=== PATIENT | female | born 1955 | race Caucasian/White ===

== ENCOUNTER → 2016-06-23 | Outpatient (CLI) | payer BC ==
[~2016-06-23] MED LIST: ALBU8.5H2 IH; ALPR.25T PO; ALPR0.254 PO; ASPI-586 PO; AZIT500T2 PO; BUDE6HFA IH; DIPH25CA79 PO; DORZ10DR19 OU; DORZ1DRO6 OS; DUREZOL OU; ESCI10TA PO; GLAUCOMA GTTS; MONT10TA21 PO; MONT10TA24 PO; Montelukast Sodium PO; NYST1POW15 TOP; OMEP20TA7 PO; PRD20T PO; Prednisone PO; SUCR1TAB PO
--- NOTE | 2016-06-24 19:29 | Diagnostic Imaging Report ---
Bilateral screening mammogram. The current study was also evaluated with a Computer Aided Detection (CAD) system. INDICATION: Screening. No current complaints stated on the questionnaire. COMPARISON: 04/25/2015. FINDINGS: The breasts are composed of heterogeneously dense parenchyma which may decrease mammographic sensitivity. There are scattered benign-appearing calcifications. Allowing for technique and positional differences, no suspicious change is seen. IMPRESSION: No significant change. ACR BI-RADS Category 2: Benign findings. Result letter will be mailed to the patient. Note: At least 10% of breast cancer is not imaged by mammography. Dictated by: Dictated on workstation # [id number]
== END ==
LOC: RAD 11:11
PROVIDERS: ATTEND Nurse Practitioner Family
DX: Z12.31 Encounter for screening mammogram for malignant neoplasm of breast (principal)

== ENCOUNTER 2016-06-28 19:34 | Observation (INO) | payer BC ==
[2016-06-28] VITALS (9 sets, daily range): BP systolic 124–137; BP diastolic 59–108
[~2016-06-28] VITALS: Ht 160 cm; Wt 95.4 kg
[~2016-06-28 19:34] MED LIST changes: -ALPR0.254 PO; -ASPI-586 PO; -DIPH25CA79 PO; -DORZ1DRO6 OS; -ESCI10TA PO; -MONT10TA21 PO; -MONT10TA24 PO; -OMEP20TA7 PO; +RT-ALBUTEROL/IPRATROPIUM 3 ML (DUONEB) VIAL ONE; -SUCR1TAB PO
[2016-06-28] MEDS ORDERED: ASPIRIN 81 MG CHEW (CHILDREN'S ASA) PO ONE (19:45)
[2016-06-28] MEDS ORDERED: RT-ALBUTEROL/IPRATROPIUM 3 ML (DUONEB) VIAL INH ONE (19:45)
[2016-06-28] MEDS ORDERED: ONDANSETRON 4 MG/2 ML (SDV) Z0FRAN IVP ONE (19:45)
[2016-06-28] MEDS ORDERED: RX-NITROGLYCERIN 0.4 MG TAB BTL 25'S SL ONE (19:45)
[2016-06-28 19:47] LABS: BASOPHILS # (AUTO) 0.1 10^3/uL (0.0-0.1); BASOPHILS % (AUTO) 1 % (0-10); EOSINOPHILS # (AUTO) 0.2 10^3/uL (0.0-0.3); EOSINOPHILS % (AUTO) 2 % (0-10); LYMPHOCYTES # (AUTO) 3.2 X 10^3 (1.0-4.0); LYMPHOCYTES % (AUTO) 31 % (12-44); MEAN CORPUSCULAR HEMOGLOBIN 32 PG (25-34); MEAN CORPUSCULAR HGB CONC 34 G/DL (32-36); MEAN CORPUSCULAR VOLUME 94 FL (80-99); MEAN PLATELET VOLUME 9.9 FL (7.4-10.4); MONOCYTES # (AUTO) 0.7 X 10^3 (0.0-1.0); MONOCYTES % (AUTO) 7 % (0-12); NEUTROPHILS # (AUTO) 6.1 X 10^3 (1.8-7.8); NEUTROPHILS % (AUTO) 59 % (42-75); PLATELET COUNT 275 10^3/uL (130-400); RED BLOOD COUNT 4.82 10^6/uL (4.35-5.85); RED CELL DISTRIBUTION WIDTH 12.5 % (10.0-14.5); WHITE BLOOD COUNT 10.2 10^3/uL (4.3-11.0)
[2016-06-28 19:56] LABS: INR 0.9 (0.8-1.4); PROTHROMBIN TIME PATIENT 11.9 SEC (12.2-14.7)
--- NOTE | 2016-06-28 20:02 | Diagnostic Imaging Report ---
INDICATION: Shortness of breath COMPARISON: 07/16/2015 FINDINGS: Upright portable view of the chest is obtained. Heart size is upper limits of normal. There is no pulmonary vascular congestion. There is no pneumothorax or pleural fluid. Eventration of the right hemidiaphragm is unchanged. The lungs are clear. IMPRESSION: No radiographic evidence of an acute cardiopulmonary abnormality. No significant interval change from the prior study. Dictated by: Dictated on workstation # [id number]
[2016-06-28 20:06] LABS: ALANINE AMINOTRANSFERASE 45 U/L (0-55); ALBUMIN 4.9 G/DL (3.2-4.5); ANION GAP 13 MMOL/L (5-14); ASPARTATE AMINO TRANSFERASE 33 U/L (5-34); BILIRUBIN,TOTAL 0.2 MG/DL (0.1-1.0); BLOOD UREA NITROGEN 11 MG/DL (7-18); BUN/CREATININE RATIO 14; CARBON DIOXIDE 26 MMOL/L (21-32); CHLORIDE 104 MMOL/L (98-107); CREATININE SERUM 0.81 MG/DL (0.60-1.30); GFR ESTIMATED > 60; GLUCOSE 110 MG/DL (70-105); MAGNESIUM 2.8 MG/DL (1.8-2.4); POTASSIUM 3.8 MMOL/L (3.6-5.0); SODIUM 143 MMOL/L (135-145); TOTAL PROTEIN 8.2 G/DL (6.4-8.2)
[2016-06-28 20:14] LABS: MYOGLOBIN SERUM 35.9 NG/ML (10.0-92.0)
[2016-06-28] MEDS ORDERED: FAMOTIDINE 20MG/2ML IV (PEPCID) IV STA (20:41)
[2016-06-28] MEDS ORDERED: ANTACID SUSP 30 ML UDC (MYLANTA) PO ONE (20:45)
[2016-06-28] MEDS ORDERED: LORazepam INJ 2 MG/ML (ATIVAN) VIAL IVP ONE (20:45)
[2016-06-28] MEDS ORDERED: LIDOCAINE 2% VISCOUS 15 ML UDC PO ONE (20:45)
[2016-06-28] MEDS ORDERED: NS 100 ML (IVPB) BAG IV ONE (21:00)
[2016-06-28] MEDS ORDERED: IOHEXOL 350 MG/ML 150 ML (OMNIPAQUE 350) VIAL IV ONE (21:00)
--- NOTE | 2016-06-28 21:32 | Diagnostic Imaging Report ---
PROCEDURE: CT angiography of the chest with contrast. TECHNIQUE: Multiple contiguous axial images were obtained through the chest after uneventful bolus administration of intravenous contrast. Reconstructed CTA MIP acquisitions were also performed. INDICATION: Chest pain. Evaluate for PE. COMPARISON: None. FINDINGS: There is no evidence of pulmonary embolus or other acute vascular abnormality. There is no mediastinal or hilar adenopathy. The thyroid gland appears unremarkable. There is no pneumothorax or pleural fluid. The lungs are clear. There is a very subtle bronchiectasis in the medial lung bases, bilaterally. There is moderate diffuse hepatic steatosis. There is a cyst in the left hepatic lobe. Visualized upper abdomen is otherwise unremarkable. No osseous abnormality is seen. IMPRESSION: There is no evidence of pulmonary embolus or other acute abnormality in the chest. There is some minimal subtle bronchiectasis to the medial lung bases. Diffuse hepatic steatosis with a left lobe hepatic cyst. Dictated by: Dictated on workstation # [id number]
--- NOTE | 2016-06-28 21:44 | ED Chest Pain ---
General Chief Complaint: Chest Pain Stated Complaint: CHEST PAIN Nursing Triage Note: to ED with complaints of chest pain that is substernal/epigastric in nature that started 15-20minutes [employer] after patient had finished eating dinner. Patient reports shortness of breath as well. Nursing Sepsis Screen: No Definite Risk Source: patient, family Exam Limitations: no limitations History of Present Illness Time seen by provider: 19:35 Initial Comments This 60-year-old woman presents to the emergency room with complaints of chest tightness and difficulty breathing that started about 20 minutes prior to arrival. She reports the chest pain as a tightness rated as 8/10. She denies any cardiac history or prior cardiac workup. She vomited shortly after onset of chest pain. She reports her pain is worse with inspiration. She appears to be very anxious. Air movement is decreased. She reports a history of asthma. Pain started just after sitting down to eat a meal. Allergies and Home Medications Allergies Coded Allergies: Sulfa (Sulfonamide Antibiotics) (Verified Allergy, Unknown, 04/27/11) Home Medications Albuterol Sulfate 8.5 Gm Aer.w.adap #2 8.5 GM IH q2h PRN PRN DYSPNEA Prescribed by: ZACKARY MORRIS on 06/08/14 1420 Alprazolam 0.25 Mg Tab #30 0.25 MG PO Q6H PRN PRN anxiety Prescribed by: ZACKARY MORRIS on 06/08/14 1420 Diphenhydramine HCl 25 Mg Capsule 25 MG PO PRN DISCOMFORT (Reported) Montelukast Sodium 10 Mg Tablet 10 MG PO HS (Reported) Omeprazole 20 Mg Tablet.dr 20 MG PO DAILY (Reported) Timolol Maleate/Dorzolam Hcl 10 Ml Drops 1 DROP OU BID (Reported) Review of Systems Constitutional: no symptoms reported EENTM: No Symptoms Reported Respiratory: See HPI Cardiovascular: See HPI Gastrointestinal: See HPI Genitourinary: No Symptoms Reported Musculoskeletal: no symptoms reported Skin: no symptoms reported Psychiatric/Neurological: See HPI Endocrine: No Symptoms Reported Past Gskfdie-Ptwoso-Zbbtzi Hx Patient Social History Alcohol Use: Denies Use Recreational Drug Use: No Smoking Status: Never a Smoker 2nd Hand Smoke Exposure: No Recent Foreign Travel: No Contact w/Someone Who Travel: No Recent Infectious Disease Expo: No Recent Hopitalizations: No Physical Abuse Screen: No Sexual Abuse: No Immunizations Up To Date Tetanus Booster (TDap): More than 5yrs Date of Influenza Vaccine: Feb 20, 2014 Seasonal Allergies Seasonal Allergies: No Surgeries HX Surgeries: Yes (GLAUCOMA, cyst on ovary) Surgeries: Eye Surgery, Gallbladder, Hysterectomy Respiratory Hx Respiratory Disorders: Yes Respiratory Disorders: Asthma Cardiovascular Hx Cardiac Disorders: No Neurological Hx Neurological Disorders: No Reproductive System Hx Reproductive Disorders: No Sexually Transmitted Disease: No HIV/AIDS: No Female Reproductive Disorders: Denies Genitourinary Hx Genitourinary Disorders: No Gastrointestinal Hx Gastrointestinal Disorders: No Musculoskeletal Hx Musculoskeletal Disorders: Yes (hands) Musculoskeletal Disorders: Arthritis Endocrine Hx Endocrine Disorders: No HEENT HX ENT Disorders: No Loss of Vision: Denies Hearing Impairment: Denies Cancer Hx Cancer: No Psychosocial Hx Psychiatric Problems: Yes Behavioral Health Disorders: Anxiety Integumentary HX Skin/Integumentary Disorder: No Blood Transfusions Hx Blood Disorders: No Family Medical History Significant Family History: Heart Disease, Cancer Family Medial History: Arthritis G8 BROTHER G8 SISTER (arthritis) Diabetes mellitus G8 SISTER (pre diabetic) Gastroenteritis G8 BROTHER (diverticulitis) Neoplasm 19 FATHER (prostat ca) Not obtainable due to adoption 19 MOTHER (passed from natural causes) Parkinson's disease 19 FATHER Physical Exam Vital Signs Vital Sign - Last 12Hours 06/28/16 06/28/16 19:38 20:45 Temp 99.1 Pulse 80 Resp 26 B/P 171/105 Pulse Ox 98 O2 Delivery Room Air O2 Flow Rate 2 Capillary Refill : Less Than 3 Seconds General Appearance: WD/WN Anxious Moderate Distress HEENT: PERRL/EOMI Normal ENT Inspection Pharynx Normal Neck: Normal Inspection Respiratory: Chest Non Tender Lungs Clear Normal Breath Sounds No Accessory Muscle Use No Respiratory Distress Cardiovascular: Regular Rate, Rhythm No Edema No Murmur Normal Peripheral Pulses Gastrointestinal: Normal Bowel Sounds Non Tender Soft Extremity: Normal Inspection No Pedal Edema Neurologic/Psychiatric: Alert Oriented x3 No Motor/Sensory Deficits trouble locater II- XII Norm as Tested Other (very anxious and tearful) Skin: Normal Color Warm/Dry Progress/Results/Core Measures Results/Orders Lab Results Laboratory Tests Test 06/28/16 19:39 Range/Units Activated Partial Thromboplast Time 28 24-35 SEC Alanine Aminotransferase (ALT/SGPT) 45 0-55 U/L Albumin 4.9 H 3.2-4.5 G/DL Alkaline Phosphatase 127 40-136 U/L Anion Gap 13 5-14 MMOL/L Aspartate Amino Transf (AST/SGOT) 33 5-34 U/L BUN/Creatinine Ratio 14 Basophils # (Auto) 0.1 0.0-0.1 10^3/uL Basophils (%) (Auto) 1 0-10 % Blood Urea Nitrogen 11 7-18 MG/DL Calcium Level 10.0 8.5-10.1 MG/DL Carbon Dioxide Level 26 21-32 MMOL/L Chloride Level 104 98-107 MMOL/L Creatinine 0.81 0.60-1.30 MG/DL Eosinophils # (Auto) 0.2 0.0-0.3 10^3/uL Eosinophils (%) (Auto) 2 0-10 % Estimat Glomerular Filtration Rate > 60 Glucose Level 110 H 70-105 MG/DL Hematocrit 45 35-52 % Hemoglobin 15.3 11.5-16.0 G/DL INR Comment 0.9 0.8-1.4 Lipase 17 8-78 U/L Lymphocytes # (Auto) 3.2 1.0-4.0 X 10^3 Lymphocytes (%) (Auto) 31 12-44 % Magnesium Level 2.8 H 1.8-2.4 MG/DL Mean Corpuscular Hemoglobin 32 25-34 PG Mean Corpuscular Hemoglobin Concent 34 32-36 G/DL Mean Corpuscular Volume 94 80-99 FL Mean Platelet Volume 9.9 7.4-10.4 FL Monocytes # (Auto) 0.7 0.0-1.0 X 10^3 Monocytes (%) (Auto) 7 0-12 % Myoglobin 35.9 10.0-92.0 NG/ML Neutrophils # (Auto) 6.1 1.8-7.8 X 10^3 Neutrophils (%) (Auto) 59 42-75 % Platelet Count 275 130-400 10^3/uL Potassium Level 3.8 3.6-5.0 MMOL/L Prothrombin Time 11.9 L 12.2-14.7 SEC Red Blood Count 4.82 4.35-5.85 10^6/uL Red Cell Distribution Width 12.5 10.0-14.5 % Sodium Level 143 135-145 MMOL/L Total Bilirubin 0.2 0.1-1.0 MG/DL Total Protein 8.2 6.4-8.2 G/DL Troponin I < 0.30 <0.30 NG/ML White Blood Count 10.2 4.3-11.0 10^3/uL My Orders Orders-JOSE NICK MD Cbc With Automated Diff (06/28/16 19:36) Magnesium (06/28/16 19:36) Chest 1 View, Ap/Pa Only (06/28/16 19:36) Ekg Tracing (06/28/16 19:36) Cardiac Profile 1 (06/28/16 19:36) Comprehensive Metabolic Panel (06/28/16 19:36) Myoglobin Serum (06/28/16 19:36) Protime With Inr (06/28/16 19:36) Partial Thromboplastin Time (06/28/16 19:36) O2 (06/28/16 19:36) Monitor-Rhythm Ecg Trace Only (06/28/16 19:36) Lipid Panel (06/29/16 06:00) Aspirin Chewable Tablet (Baby Aspirin Ch (06/28/16 19:45) Saline Lock/Iv-Start (06/28/16 19:36) Lipase (06/28/16 19:36) Rx-Nitroglycerin Sl Tabs (Rx-Nitrostat S (06/28/16 19:45) Albuterol/Ipra Inhalation Soln (Duoneb I (06/28/16 19:45) Svn Sm Volume Nebulizer Rt-Rfs (06/28/16 19:36) Ondansetron Injection (Zofran Injectio (06/28/16 19:45) Albuterol/Ipra Inhalation Soln (Duoneb I (06/28/16 19:31) Lorazepam Injection (Ativan Injection) (06/28/16 20:45) Lidocaine 2% Viscous 15 Ml (Xylocaine Vi (06/28/16 20:45) Antacid Suspension (Mylanta Suspension (06/28/16 20:45) Famotidine Injection (Pepcid Injection) (06/28/16 20:41) Ct Angio Chest W (06/28/16 20:51) Iohexol Injection (Omnipaque 350 Mg/Ml 1 (06/28/16 21:00) Ns (Ivpb) (Sodium Chloride 0.9% Ivpb Bag (06/28/16 21:00) Medications Given in ED Current Medications Medications Dose Ordered Sig/Daisha Route Start Time Stop Time Status Last Admin Dose Admin Al Hydrox/Mg Hydrox/Simethicone 30 ml ONCE ONCE PO 06/28/16 20:45 06/28/16 20:46 DC 06/28/16 20:48 30 ML Albuterol/ Ipratropium 3 ml ONCE ONCE INH 06/28/16 19:45 06/28/16 19:46 DC 06/28/16 19:43 3 ML Aspirin 324 mg ONCE ONCE PO 06/28/16 19:45 06/28/16 19:46 DC 06/28/16 19:52 324 MG Iohexol 150 ml ONCE ONCE IV 06/28/16 21:00 06/28/16 21:08 DC 06/28/16 21:22 125 ML Lidocaine HCl 15 ml ONCE ONCE PO 06/28/16 20:45 06/28/16 20:46 DC 06/28/16 20:48 15 ML Lorazepam 0.5 mg ONCE ONCE IVP 06/28/16 20:45 06/28/16 20:46 DC 06/28/16 20:48 0.5 MG Nitroglycerin 0.4 mg UD ONCE SL 06/28/16 19:45 06/28/16 19:46 DC 06/28/16 19:52 0.4 MG Ondansetron HCl 8 mg ONCE ONCE IVP 06/28/16 19:45 06/28/16 19:46 DC 06/28/16 19:48 8 MG Sodium Chloride 100 ml ONCE ONCE IV 06/28/16 21:00 06/28/16 21:08 DC 06/28/16 21:22 80 ML Vital Signs/I&O Vital Sign - Last 12Hours 06/28/16 06/28/16 06/28/16 06/28/16 19:38 19:38 19:42 19:45 Temp 99.1 Pulse 80 Resp 26 B/P 171/105 Pulse Ox 98 95 98 O2 Delivery Room Air Room Air Room Air Room Air 06/28/16 06/28/16 06/28/16 06/28/16 19:52 20:30 20:45 21:30 Temp 99.1 Pulse 78 107 73 Resp 31 26 18 B/P 132/85 137/108 130/65 Pulse Ox 98 98 95 O2 Delivery Room Air Nasal Cannula Nasal Cannula O2 Flow Rate 2 2 06/28/16 22:01 Temp 98.8 Pulse 69 Resp 16 B/P 126/67 Pulse Ox 97 O2 Delivery Room Air Blood Pressure Mean: 127 Progress Note #1: Time: 20:40 Progress Note Patient received aspirin, nitroglycerin, and a DuoNeb treatment. She reported her pain improved to 3/10 but is now worsening again. She appears very anxious and appears to be hyperventilating. Ativan 0.5 mg IV was ordered. Patient reports pain is now also radiating into her middle back. CT angiogram was ordered to evaluate for PE and aortic pathology. Progress Note #2: Progress Note CT angiogram was negative. Symptoms improved significantly with administration of Ativan. ECG Initial ECG Impression Date: Jun 28, 2016 Initial ECG Impression Time: 19:37 Initial ECG Rate: 81 Initial ECG Rhythm: Normal Sinus Initial ECG Intervals: Normal Comment normal sinus rhythm with no ST elevation or depression. Normal normal intervals or axis deviation. PVCs noted. Diagnostic Imaging Diagonstic Imaging: Xray Plain Films/CT/US/NM/MRI: chest Comments chest x-ray viewed by me and report reviewed. See report below: NAME: ARIES FITCH MED REC#: [id number] PT STATUS: REG ER : 1955 PHYSICIAN: JOSE NICK MD ADMIT DATE: 06/28/16/ER Signed Date of Exam: 06/28/16 CHEST 1 VIEW, AP/PA ONLY INDICATION: Shortness of breath COMPARISON: 07/16/2015 FINDINGS: Upright portable view of the chest is obtained. Heart size is upper limits of normal. There is no pulmonary vascular congestion. There is no pneumothorax or pleural fluid. Eventration of the right hemidiaphragm is unchanged. The lungs are clear. IMPRESSION: No radiographic evidence of an acute cardiopulmonary abnormality. No significant interval change from the prior study. Dictated by: Dictated on workstation # [id number] Dict: 06/28/16 1947 Trans: 06/28/162002 SHASHI [id number] Interpreted by: CHANDRA FITZGERALD DO Electronically signed by:CHANDRA FITZGERALD DO 06/28/162004 Diagonstic Imaging: CT Plain Films/CT/US/NM/MRI: chest Comments CT angiogram of the chest viewed by me and report reviewed. See report below: NAME: ARIES FITCH [facility] REC#: [id number] PT STATUS: REG ER : 1955 PHYSICIAN: JOSE NICK MD ADMIT DATE: 06/28/16/ER Signed Date of Exam:06/28/16 CT ANGIO CHEST W PROCEDURE: CT angiography of the chest with contrast. TECHNIQUE: Multiple contiguous axial images were obtained through the chest after uneventful bolus administration of intravenous contrast. Reconstructed CTA MIP acquisitions were also performed. INDICATION: Chest pain. Evaluate for PE. COMPARISON: None. FINDINGS: There is no evidence of pulmonary embolus or other acute vascular abnormality. There is no mediastinal or hilar adenopathy. The thyroid gland appears unremarkable. There is no pneumothorax or pleural fluid. The lungs are clear. There is a very subtle bronchiectasis in the medial lung bases, bilaterally. There is moderate diffuse hepatic steatosis. There is a cyst in the left hepatic lobe. Visualized upper abdomen is otherwise unremarkable. No osseous abnormality is seen. IMPRESSION: There is no evidence of pulmonary embolus or other acute abnormality in the chest. There is some minimal subtle bronchiectasis to the medial lung bases. Diffuse hepatic steatosis with a left lobe hepatic cyst. Dictated by: Dictated on workstation # [id number] Dict: 06/28/162125 Trans: 06/28/162132 [facility] [id number] Interpreted by: CHANDRA FITZGERALD DO Electronically signed by: CHANDRA FITZGERALD DO 06/28/162134 Departure Communication Time/Spoke to Admitting Phy: 22:10 Communication Case was reviewed with Dr. Morris who agrees with admission for observation. She will consult pulmonology and/or cardiology as necessary in the morning. Because patient has never had a cardiac workup, she agrees that a cardiac rule out is appropriate. The chest pain protocol orders set is being followed. Patient will be allowed to continue her home medications including Xanax. Impression Impression: Primary Impression: Chest pain Qualified Code: R07.9 - Chest pain, unspecified Additional Impressions: Anxiety Dyspnea Qualified Code: R06.00 - Dyspnea, unspecified Nausea Nausea and vomiting Qualified Code: R11.2 - Nausea with vomiting, unspecified Asthma Qualified Code: J45.909 - Unspecified asthma, uncomplicated Disposition: ADMITTED INPATIENT Condition: Improved Time/Decision to Admit Time: 22:10 Departure-Patient Inst. Referrals: ZACKARY MORRIS MD (PCP/Family) Primary Care Physician JOSE NICK MD Jun 28, 2016 21:44
[2016-06-28] MEDS ORDERED: NS IV 500 ML 500 ML ONE (23:00)
[2016-06-28] MEDS ORDERED: NITROGLYCERIN SUBLINGUAL 0.4 MG TAB (NITROSTAT) SL PRN (23:30)
[2016-06-28] MEDS ORDERED: ONDANSETRON 4 MG/2 ML (SDV) Z0FRAN IV PRN (23:30)
[2016-06-28] MEDS ORDERED: MONT10TA21 PO (23:46)
[2016-06-28] MEDS ORDERED: OMEP20TA7 PO (23:47)
[2016-06-28] MEDS ORDERED: DIPH25CA79 PO (23:48)
[2016-06-29] VITALS (7 sets, daily range): BP systolic 120–144; BP diastolic 60–73
[2016-06-29 02:07] LABS: CREATINE KINASE 88 U/L (29-168)
[2016-06-29 02:12] LABS: TROPONIN I < 0.30 NG/ML (<0.30)
[2016-06-29 06:30] LABS: CHOLESTEROL 156 MG/DL (< 200); DIRECT LDL 101 MG/DL (1-129); TRIGLYCERIDES 161 MG/DL (<150); VLDL CHOLESTEROL 32 MG/DL (5-40)
[2016-06-29] MEDS ORDERED: FLU TRIvalent (5 YOA+) 2016-17 (AFLURIA) 0.5 ML IM ONE (07:15)
[2016-06-29] MEDS ORDERED: CATHETER FLUSH 10 ML SYR IV PRN (09:00)
[2016-06-29] MEDS ORDERED: ASPIRIN E.C. 325 MG (ECOTRIN) TABLET PO SCH (09:00)
--- NOTE | 2016-06-29 09:48 | Consultation-Cardiology ---
HPI-Cardiology Cardiology Consultation Date of Consultation 06/29/16 Date of Admission Indication: chest pain HPI 60-year-old lady with no significant past cardiac history or past medical history was in her usual state of health until yesterday evening when she had an episode of hot flashes surgery with diaphoresis, started feeling nauseous, had one episode of vomiting when she started having chest pain described as squeezing pressure in the retrosternal area radiating to the back, mild dyspnea , no palpitation, no syncope or near syncopal episode, came into the emergency room and given sublingual nitroglycerin with mild relief, no full relief was reported. Continue to have some pain for about an hour then the pain relieved. Denied any similar episodes in the past. Home Medications & Allergies Allergies: Coded Allergies: Sulfa (Sulfonamide Antibiotics) (Verified Allergy, Unknown, 04/27/11) Home Medication List Reviewed: Yes UQI-Yupbxg-Domyyl Hx Patient Social History Alcohol Use: Occasionally Uses Recreational Drug Use: No Smoking Status: Never a Smoker 2nd Hand Smoke Exposure: No Recent Foreign Travel: No Recent Infectious Disease Expo: No Recent Hopitalizations: No Physical Abuse Screen: No Sexual Abuse: No Immunizations Up To Date Tetanus Booster (TDap): More than 5yrs Date of Influenza Vaccine: Feb 20, 2014 Past Medical History past medical history as discussed below Family Medical History Significant Family History: Heart Disease, Cancer Family History: 19 FATHER Neoplasm (prostat ca) Parkinson's disease 19 MOTHER Not obtainable due to adoption (passed from natural causes) G8 BROTHER Arthritis G8 BROTHER Gastroenteritis (diverticulitis) G8 SISTER Arthritis (arthritis) Diabetes mellitus (pre diabetic) Constitutional: see HPINo chills, diaphoresisNo dizziness, No fever, No malaise, weaknessNo weight gain, No weight loss, No other EENTM: no symptoms reported see HPI Respiratory: see HPINo cough, No dyspnea on exertion, No hemoptysis, No orthopnea, No phlegm, short of breathNo stridor, No wheezing, No other Cardiovascular: see HPI chest painNo edema, No Hx of Intervention, No palpitations, No syncope, No vascular heart diseas, No other Gastrointestinal: see HPI abdominal pain nausea vomiting Genitourinary: no symptoms reported see HPI Musculoskeletal: no symptoms reported see HPI Skin: no symptoms reported see HPI Psychiatric/Neurological: No Symptoms Reported See HPI Reviewed Test Results Reviewed Test Results Lab Laboratory Tests Test 06/28/16 19:39 06/29/16 01:27 06/29/16 05:46 Range/Units Activated Partial Thromboplast Time 28 24-35 SEC Alanine Aminotransferase (ALT/SGPT) 45 0-55 U/L Albumin 4.9 H 3.2-4.5 G/DL Alkaline Phosphatase 127 40-136 U/L Anion Gap 13 5-14 MMOL/L Aspartate Amino Transf (AST/SGOT) 33 5-34 U/L BUN/Creatinine Ratio 14 Basophils # (Auto) 0.1 0.0-0.1 10^3/uL Basophils (%) (Auto) 1 0-10 % Blood Urea Nitrogen 11 7-18 MG/DL Calcium Level 10.0 8.5-10.1 MG/DL Carbon Dioxide Level 26 21-32 MMOL/L Chloride Level 104 98-107 MMOL/L Creatinine 0.81 0.60-1.30 MG/DL Eosinophils # (Auto) 0.2 0.0-0.3 10^3/uL Eosinophils (%) (Auto) 2 0-10 % Estimat Glomerular Filtration Rate > 60 Glucose Level 110 H 70-105 MG/DL Hematocrit 45 35-52 % Hemoglobin 15.3 11.5-16.0 G/DL INR Comment 0.9 0.8-1.4 Lipase 17 8-78 U/L Lymphocytes # (Auto) 3.2 1.0-4.0 X 10^3 Lymphocytes (%) (Auto) 31 12-44 % Magnesium Level 2.8 H 1.8-2.4 MG/DL Mean Corpuscular Hemoglobin 32 25-34 PG Mean Corpuscular Hemoglobin Concent 34 32-36 G/DL Mean Corpuscular Volume 94 80-99 FL Mean Platelet Volume 9.9 7.4-10.4 FL Monocytes # (Auto) 0.7 0.0-1.0 X 10^3 Monocytes (%) (Auto) 7 0-12 % Myoglobin 35.9 10.0-92.0 NG/ML Neutrophils # (Auto) 6.1 1.8-7.8 X 10^3 Neutrophils (%) (Auto) 59 42-75 % Platelet Count 275 130-400 10^3/uL Potassium Level 3.8 3.6-5.0 MMOL/L Prothrombin Time 11.9 L 12.2-14.7 SEC Red Blood Count 4.82 4.35-5.85 10^6/uL Red Cell Distribution Width 12.5 10.0-14.5 % Sodium Level 143 135-145 MMOL/L Total Bilirubin 0.2 0.1-1.0 MG/DL Total Protein 8.2 6.4-8.2 G/DL Troponin I < 0.30 < 0.30 <0.30 NG/ML White Blood Count 10.2 4.3-11.0 10^3/uL Total Creatine Kinase 88 29-168 U/L Cholesterol Level 156 < 200 MG/DL HDL Cholesterol 32 L 40-60 MG/DL LDL Cholesterol Direct 101 1-129 MG/DL Triglycerides Level 161 H <150 MG/DL VLDL Cholesterol 32 5-40 MG/DL Physical Exam Vital Signs Vital Sign - Last 12Hours 06/28/16 06/28/16 19:38 20:45 Temp 99.1 Pulse 80 Resp 26 B/P 171/105 Pulse Ox 98 O2 Delivery Room Air O2 Flow Rate 2 Capillary Refill : Less Than 3 Seconds General Appearance: No Apparent Distress WD/WN Eyes: Bilateral Eye EOMI, Bilateral Eye Normal Inspection, Bilateral Eye PERRL HEENT: PERRL/EOMI TMs Normal Normal ENT Inspection Pharynx Normal Neck: Full Range of Motion Normal Inspection Non Tender Supple Carotid Bruit Respiratory: Chest Non Tender Lungs Clear Normal Breath Sounds No Accessory Muscle Use No Respiratory Distress Cardiovascular: Regular Rate, Rhythm No Edema No Gallop No JVD No Murmur Normal Peripheral Pulses Gastrointestinal: Normal Bowel Sounds No Organomegaly No Pulsatile Mass Non Tender Soft Back: Normal Inspection No CVA Tenderness No Vertebral Tenderness Extremity: Normal Capillary Refill Normal Inspection Normal Range of Motion Non Tender No Calf Tenderness No Pedal Edema Neurologic/Psychiatric: Alert Oriented x3 No Motor/Sensory Deficits Normal Mood/Affect Skin: Normal Color Warm/Dry Lymphatic: No Adenopathy A/P-Cardiology Admission Diagnosis Chest pain nonspecific etiology Shortness of breath Gastroesophageal reflux disease Assessment/Plan Chest pain nonspecific etiology, atypical in presentation, had episode last night, patient is chest pain-free, EKG and cardiac enzymes were negative. Discussed with her the management plan, recommended exercise stress testing, monitor telemetry, evaluate echocardiogram. Mild shortness of breath during chest pain, reporting improvement. Continue to monitor History of gastroesophageal reflux disease using [id number] medication, recommended endoscopy History of cholecystectomy, hysterectomy with bilateral oophorectomy. Obesity, BMI is 37, educated on diet and weight loss Clinical Quality Measures AMI/AHF: ASA po Prior to arrival: No DVT/VTE Risk/Contraindication: Risk Factor Score Per Nursin RFS Level Per Nursing on Admit: 3=High JUSTIN BARRAZA MD Jun 29, 2016 09:48
[2016-06-29] MEDS ORDERED: MONT10TA24 PO (09:55)
[2016-06-29] MEDS ORDERED: DORZ1DRO6 OS (09:55)
[2016-06-29] MEDS ORDERED: SUCRALFATE 1 GM (CARAFATE) TAB PO SCH (11:00)
--- NOTE | 2016-06-29 11:01 | Short Stay Summary ---
History of Present Illness History of Present Illness Reason for visit/HPI PT IS A 60 Y/O FEMALE WHO IS KNOWN TO ME FROM CLINIC. SHE PRESENTED TO THE EMERGENCY DEPARTMENT LAST NIGHT AFTER HAVING AN EPISODE OF PERSISTENT CHEST PAIN YESTERDAY EVENING. THE PATIENT AND HER FAMILY REPORT THE HISTORY OF ARIES SITTING DOWN TO DINNER YESTERDAY - STARTED EATING HAM AND BEANS AND CORNBREAD, SHORTLY INTO THE MEAL, SHE STARTED TO HAVE MILD DISCOMFORT IN HER CHEST, AND HAD A HOT FLASH AND SWEATING. SHE GOT UP FROM THE TABLE, WENT OUTSIDE AND WALKED AROUND IN THE COOL AIR, THEN STARTED TO HAVE EMESIS. SHE STATES THAT SHE VOMITED SEVERAL TIMES, THEN WENT INSIDE FOR A DRINK, AND HER FAMILY ENCOURAGED HER TO BE EVALUATED IN THE EMERGENCY DEPT. SHE WAS GIVEN NITRO, ASPIRIN, NO CHEST DISCOMFORT RELIEF. SHE THEN HAD A GI COCKTAIL WITH NO IMPROVEMENT IN HER SYMPTOMS. HER FAMILY THINKS THAT SHE HAD A FEW MILD PANIC ATTACKS DUE TO HER PERSISTENT SYMPTOMS. TODAY SHE STATES THAT SHE CONTINUES TO HAVE SOME DISCOMFORT IN HER EPIGASTRIC REGION. Date of Admission Jun 28, 2016 at 22:31 Date of Discharge 06/29/16 Attending Physician Zackary Morris MD Admitting Physician Zackary Morris MD Consult JUSTIN BARRAZA MD, TAKA MD Allergies and Home Medications Allergies Coded Allergies: Sulfa (Sulfonamide Antibiotics) (Verified Allergy, Unknown, 04/27/11) Home Medications Alprazolam 0.25 Mg Tablet #45 0.25 MG PO BID PRN Prescribed by: ZACKARY MORRIS on 06/29/16 111 Aspirin 81 Mg Tablet. #90 81 MG PO DAILY Prescribed by: ZACKARY MORRIS on 06/29/16 1112 Diphenhydramine HCl 25 Mg Capsule 25 MG PO DAILY PRN PRN ALLERGIES (Reported) Dorzolamide/Timolol/Pf 1 Each Droperette 1 DROP OS BID (Reported) Escitalopram Oxalate 10 Mg Tablet #30 10 MG PO HS Prescribed by: ZACKARY MORRIS on 06/29/16 111 Montelukast Sodium 10 Mg Tablet 10 MG PO HS (Reported) Omeprazole 20 Mg Tablet. #60 20 MG PO BID Prescribed by: ZACKARY MORRIS on 06/29/16 111 Sucralfate 1 Gm Tablet #120 1 GM PO ACHS Prescribed by: ZACKARY MORRIS on 06/29/16 1112 Past Sjiqemc-Odnutk-Zrezmf Hx Patient Social History Living Status: LIVES AT HOME, FAMILY INVOLVED Alcohol Use: Occasionally Uses Recreational Drug Use: No Smoking Status: Never a Smoker 2nd Hand Smoke Exposure: No Physical Abuse Screen: No Sexual Abuse: No Recent Foreign Travel: No Contact w/other who traveled: No Recent Hopitalizations: No Recent Infectious Disease Expo: No Immunizations Up To Date Tetanus Booster (TDap): More than 5yrs Date of Influenza Vaccine: Feb 20, 2014 Seasonal Allergies Seasonal Allergies: No Surgeries HX Surgeries: Yes (GLAUCOMA, cyst on ovary) Surgeries: Eye Surgery, Gallbladder, Hysterectomy Respiratory Hx Respiratory Disorders: Yes Respiratory Disorders: Asthma Cardiovascular Hx Cardiovascular Disorders: No Neurological Hx Neurological Disorders: No Reproductive System Hx Reproductive Disorders: No Sexually Transmitted Disease: No HIV/AIDS: No Female Reproductive Disorders: Denies Genitourinary Hx Genitourinary Disorders: No Gastrointestinal Hx Gastrointestinal Disorders: No Gastrointestinal Disorders: Gastroesophageal Reflux, Chronic Constipation, Chronic Diarrhea, Irritable Bowel Musculoskeletal Hx Musculoskeletal Disorders: Yes (hands) Musculoskeletal Disorders: Arthritis Endocrine Hx Endocrine Disorders: No HEENT HX ENT Disorders: No HEENT Disorders: Glaucoma Loss of Vision: Denies Hearing Impairment: Denies Cancer Hx Cancer: No Psychosocial Hx Psychiatric Problems: Yes Behavioral Health Disorders: Anxiety Integumentary HX Skin/Integumentary Disorder: No Blood Transfusions Hx Blood Disorders: No Adverse Reaction to a Blood Tr: No (NEVER RECEIVED BLOOD ) Reviewed Nursing Assessment Reviewed/Agree w Nursing PMH: Yes Family Medical History Significant Family History: Heart Disease, Cancer, Diabetes, GI Disease, Other Conditions/Hx (PARKINSONS DISEASE) Family Hx: Arthritis G8 BROTHER G8 SISTER (arthritis) Diabetes mellitus G8 SISTER (pre diabetic) Gastroenteritis G8 BROTHER (diverticulitis) Neoplasm 19 FATHER (prostat ca) Not obtainable due to adoption 19 MOTHER (passed from natural causes) Parkinson's disease 19 FATHER Constitutional: No chills, No dizziness, No fever, No malaise, No weakness EENTM: No hoarseness, No mouth pain, No throat pain Respiratory: No cough, No dyspnea on exertion, No short of breath, No wheezing Cardiovascular: chest painNo palpitations, No syncope Gastrointestinal: LUQ (EPIGASTRIC DISCOMFORT) abdominal painNo constipation, No diarrhea, No melena, vomiting Genitourinary: no symptoms reported Musculoskeletal: No back pain, No joint swelling, No muscle weakness Skin: no symptoms reported Psychiatric/Neurological: Anxiety All Other Systems Reviewed Negative Unless Noted: Yes Physical Exam Vital Signs Vital Sign - Last 12Hours 06/28/16 06/28/16 19:38 20:45 Temp 99.1 Pulse 80 Resp 26 B/P 171/105 Pulse Ox 98 O2 Delivery Room Air O2 Flow Rate 2 Capillary Refill : Less Than 3 Seconds General Appearance: No Apparent Distress WD/WN HEENT: PERRL/EOMI Pharynx Normal Neck: Full Range of Motion Supple Respiratory: Chest Non Tender Lungs Clear Normal Breath Sounds No Accessory Muscle Use No Respiratory Distress Cardiovascular: Regular Rate, Rhythm No Edema No Murmur Normal Peripheral Pulses Gastrointestinal: Normal Bowel Sounds Soft Tenderness (OVER EPIGASTRIUM) Rectal: Deferred Back: Normal Inspection No CVA Tenderness No Vertebral Tenderness Extremity: Normal Capillary Refill No Calf Tenderness No Pedal Edema Neurologic/Psychiatric: Alert Oriented x3 No Motor/Sensory Deficits Normal Mood/Affect food concession manager II-XII Norm as Tested Skin: Normal Color Warm/Dry Lymphatic: No Adenopathy Clinical Quality Measures AMI/AHF: ASA po Prior to arrival: No DVT/VTE Risk/Contraindication: VTE Present on Admission: No Risk Factor Score Per Nursin RFS Level Per Nursing on Admit: 1=Low/No VTE PPX Contraindications-Pharm: Pt at low risk Contraindications-Mechi: Pt at low risk Other: PLANNING ON DISCHARGE THIS EVENING, POSSIBLE EGD, WILL NOT START LOVENOX Short Stay Diagnosis Discharge Diagnosis-Short Stay Admission Diagnosis: CHEST PAIN EPIGASTRIC PAIN NAUSEA ANXIETY ASTHMA Final Discharge Diagnosis: CHEST PAIN EPIGASTRIC PAIN NAUSEA ANXIETY ASTHMA Conclusion Labs Laboratory Tests 06/28/16 19:39: Activated Partial Thromboplast Time 28, Alanine Aminotransferase (ALT/SGPT) 45, Albumin 4.9H, Alkaline Phosphatase 127, Anion Gap 13, Aspartate Amino Transf ( AST/SGOT) 33, BUN/Creatinine Ratio 14, Basophils # (Auto) 0.1, Basophils (%) ( Auto) 1, Blood Urea Nitrogen 11, Calcium Level 10.0, Carbon Dioxide Level 26, Chloride Level 104, Creatinine 0.81, Eosinophils # (Auto) 0.2, Eosinophils (%) ( Auto) 2, Estimat Glomerular Filtration Rate > 60, Glucose Level 110H, Hematocrit 45, Hemoglobin 15.3, INR Comment 0.9, Lipase 17, Lymphocytes # (Auto ) 3.2, Lymphocytes (%) (Auto) 31, Magnesium Level 2.8H, Mean Corpuscular Hemoglobin 32, Mean Corpuscular Hemoglobin Concent 34, Mean Corpuscular Volume 94, Mean Platelet Volume 9.9, Monocytes # (Auto) 0.7, Monocytes (%) (Auto) 7, Myoglobin 35.9, Neutrophils # (Auto) 6.1, Neutrophils (%) (Auto) 59, Platelet Count 275, Potassium Level 3.8, Prothrombin Time 11.9L, Red Blood Count 4.82, Red Cell Distribution Width 12.5, Sodium Level 143, Total Bilirubin 0.2, Total Protein 8.2, Troponin I < 0.30, White Blood Count 10.2 06/29/16 01:27: Troponin I < 0.30, Total Creatine Kinase 88 06/29/16 05:46: Cholesterol Level 156, HDL Cholesterol 32L, LDL Cholesterol Direct 101, Triglycerides Level 161H, VLDL Cholesterol 32 Conclusion/Plan PT ADMITTED TO THE HOSPITAL, SERIAL CARDIAC ENZYMES NEGATIVE - CONSULT TO CARDIOLOGY FOR STRESS TESTING. DEFER CARDIAC EVAL AND TREATMENT TO C S S REPRESENTATIVE. EPIGASTRIC PAIN - CONCERN FOR PATIENT TO HAVE HAD A LARGE FOOD BOLUS IN LOWER ESOPHAGEAL REGION CAUSING DISCOMFORT AND CHEST PAIN - CONSULT PLACED TO DR. BLOOD FOR EGD - WILL START PT ON CARAFATE AND DEPENDING ON THE PATIENT'S EGD RESULTS WILL DISCHARGE ON PPI. ANXIETY - RX FOR ANXIOLYTIC ON DISCHARGE ASTHMA - RESTART HOME MEDICATIONS. ZACKARY MORRIS MD Jun 29, 2016 11:01
[2016-06-29] MEDS ORDERED: SUCR1TAB PO (11:12)
[2016-06-29] MEDS ORDERED: ESCI10TA PO (11:12)
[2016-06-29] MEDS ORDERED: ALPR0.254 PO (11:12)
[2016-06-29] MEDS ORDERED: ASPI-586 PO (11:12)
[2016-06-29] MEDS ORDERED: OMEP20TA7 PO (11:12)
--- NOTE | 2016-06-29 13:55 | Conscious Sedation/ASA ---
Conscious Sedation Pre-Proced Time Reviewed: 13:45 ASA Class: 3 Airway Mallampati Classification: ([place] appropriate class) I. II. III, IV Lungs Heart ASA score ASA 1: a normal healthy patient ASA 2: a patient with a mild systemic disease (mid diabetes, controlled hypertension, obesity ASA 3: a patient with a severe systemic disease that limits activity (angina , COPD, prior Myocardial infarction) ASA 4: a patient with an incapacitating disease that is a constant threat to life (CHF, renal failure) ASA 5: a moribund patient not expected to survive 24 hrs. (ruptured aneurysm) ASA 6: a declared brain patient whose organs are being harvested. For emergent operations, add the letter E after the classification Grade 2 Sedation Plan: Analgesia, Amnesia, Plan communicated to team members, Discussed options with patient/fam, Discussed risks with patient/fam Note The patient is an appropriate candidate to undergo the planned procedure, sedation, and anesthesia. The patient immediately re-assessed prior to indication. SERGIO BLOOD MD Jun 29, 2016 1:55 pm
--- NOTE | 2016-06-29 13:58 | Progress Note-Pre Operative ---
Pre-Operative Progress Note H&P Reviewed The H&P was reviewed, patient examined and no changes noted. Date H&P Reviewed: Jun 29, 2016 Time H&P Reviewed: 13:45 Pre-Operative Diagnosis: GERD, dysphagia SERGIO BLOOD MD Jun 29, 2016 1:58 pm
[2016-06-29] MEDS ORDERED: CATHETER FLUSH 10 ML SYR IV SCH (14:00)
[2016-06-29] MEDS ORDERED: MIDAZOLAM 2 MG/2 ML (VERSED) VIAL ONE (14:25)
[2016-06-29] MEDS ORDERED: fentaNYL INJECTION 100 MCG/2 ML AMP ONE (14:26)
[2016-06-29] MEDS ORDERED: NS IV 500 ML 500 ML ONE (14:32)
[2016-06-29] MEDS: fentaNYL INJECTION 100 MCG/2 ML AMP IVP PRN ×2 (14:45→14:55)
[2016-06-29] MEDS: MIDAZOLAM 10 MG/2 ML (VERSED) VIAL IVP PRN ×3 (14:46→14:56)
[2016-06-29] MEDS ORDERED: HURRICAINE EXT TUBE (BENZOCAINE) XX ONE (16:00)
[2016-06-29] MEDS ORDERED: MONTELUKAST 10 MG (SINGULAIR) TAB PO SCH (21:00)
[2016-06-29] MEDS ORDERED: PANTOPRAZOLE 40 MG/10 ML (PROTONIX) VIAL IV SCH (21:00)
[2016-06-30] MEDS ORDERED: PANTOPRAZOLE 20 MG TABLET (PROTONIX) PO SCH (07:00)
--- NOTE | 2016-06-30 07:30 | CONSULTATION REPORT ---
DATE OF CONSULTATION: 06/29/2016 REFERRING PHYSICIAN: DATE OF ADMISSION: 06/28/2016 ATTENDING PHYSICIAN: Dr. Morris. Ms. Jodi Myles is a 60-year-old female who presented to the [facility] emergency department late last night due to substernal chest pressure, shortness of breath, as well as nausea and vomiting. She reports that she ate a meal, instantaneously felt this chest pressure and then felt short of breath. Then went outside and then regurgitate everything that she took in. She reports that this is the first time that this has happened. 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 She reports that her asthma symptoms are different from the symptoms that she had last night. She also has undergone recent cardiac work-up on this admission including a CT angiogram which did not show any signs of any pulmonary embolism. She reports that she has had some history of gastroesophageal reflux disease, as well as gastritis in the past and was started on omeprazole. She does not report any hematemesis nor coffee-ground emesis. She also does not report any red blood per rectum nor any dark tarry stools. PAST MEDICAL HISTORY: 1. Asthma. 2. Glaucoma. 3. Gastroesophageal reflux disease. PAST SURGICAL HISTORY: 1. Laparoscopic cholecystectomy . 2. Open total hysterectomy . 3. Cataract surgery. ALLERGIES: Sulfa. MEDICATIONS: 1. Montelukast 10 mg daily 2. omeprazole 20 mg daily 3. Timolol eyedrops b.i.d. 4. diphenhydramine 25 mg p.r.n. 5. alprazolam 0.25 mg p.r.n. 6. albuterol q.2 hours p.r.n. SOCIAL HISTORY: Negative smoke. Negative alcohol. FAMILY HISTORY: Father prostate cancer. Maternal uncle colon cancer. VITAL SIGNS: Temperature 98.5, blood pressure 120/70, pulse 58, respiratory rate 16, pulse oximetry 95% on room air. REVIEW OF SYSTEMS: This is a well-nourished female currently in no acute distress. She is not experiencing any shortness of breath nor difficulty breathing. No chest pain, palpitations, diaphoresis. Episode of substernal chest pressure followed by reflux and regurgitation. No hematemesis, no coffee-ground emesis. Normal bowel movements. No fever or chills. No recent inadvertent weight loss. PHYSICAL EXAMINATION: CHEST: Clear. HEART: Regular. EXTREMITIES: No lower extremity edema. Negative Homans sign. HEENT: No scleral icterus. No cervical lymphadenopathy. ABDOMEN: Soft, nontender, nondistended. ASSESSMENT AND PLAN: This is a 60-year-old female with gastroesophageal reflux disease and signs and symptoms of dysphagia with associated respiratory symptoms. She has been seen by pulmonology before and has been diagnosed with asthma; however, is being currently treated and her symptoms yesterday were different from her asthma. She has also had a cardiac work-up which at this time it appears to be normal. We will proceed with an EGD and biopsies as well as possible dilatation. Job ID: [id number] Dictated Date: 06/29/2016 14:42:22 Mmi Teacher Date: 06/30/2016 07:22:05/derek
--- NOTE | 2016-06-30 09:15 | ECHOCARDIOGRAPHY REPORT ---
PROCEDURE PHYSICIAN: JUSTIN BARRAZA DATE OF PROCEDURE: 06/29/2016 TWO DIMENSIONAL ECHOCARDIOGRAM REPORT PRIMARY PHYSICIAN: OTHER PHYSICIAN: REFERRING PHYSICIAN: Dr. Morris ORDERING PHYSICIAN: INDICATION FOR THE PROCEDURE: Chest pain MEASUREMENTS DERIVED VALUES LV DIAMETER (LAX) NORMALS NORMALS Diastolic 5.3 (3.6-5.2) Eject. Fract. 60% (60%+/-6%) Systolic (2.3-3.9) Diastolic Vol. % Shortening (0.22-0.42) Systolic Vol. Aortic Root IVS THICKNESS Diastolic 1.1 (0.6-1.1) LVPW THICKNESS Diastolic 1.1 (0.6-1.1) LA DIAMETER Systolic 4.5 (2.1-3.7) FINDINGS: 1. Technical quality is good. 2. The left ventricle is normal in size with normal contractility. Systolic function appeared to be normal. Estimated ejection fraction 60%. 3. The left atrium is dilated. No clot or thrombus were seen within the left atrium. 4. The right atrium and right ventricle are normal in size. No clot or thrombus were seen within the right side. 5. Mitral valve is normal in morphology with mild mitral regurgitation noted by color Doppler flow. No mitral valve prolapse. No mitral valve stenosis. 6. Aortic valve is trileaflet with normal opening and closing pattern. No significant aortic stenosis or regurgitation was seen. 7. Tricuspid valve is normal in morphology with mild tricuspid regurgitation noted by color Doppler flow. Doppler across tricuspid valve estimated pulmonary artery pressure of 23+ right atrial pressure. 8. Pulmonic valve is functioning normally. 9. No pericardial effusion. CONCLUSION: 1. Normal left ventricular size and systolic function. Estimated ejection fraction 60%. 2. Mild mitral and tricuspid regurgitation. 3. Estimated pulmonary artery pressure of 30 mmHg. Job ID: [id number] Dictated Date: 06/29/2016 16:26:34 Fire Lieutenant Date: 06/30/2016 09:12:31 / kaz SOTO
--- NOTE | 2016-06-30 09:20 | STRESS TEST ---
PROCEDURE PHYSICIAN: JUSTIN BARRAZA EXERCISE STRESS ECHOCARDIOGRAM REPORT DATE OF PROCEDURE: 06/29/2016 REFERRING PHYSICIAN: Dr. Morris INDICATION: Chest pain Baseline heart rate is 60, baseline blood pressure: 143/68. Baseline EKG: Sinus rhythm with no ischemic changes. SUMMARY: The patient started exercising with a baseline heart rate, blood pressure and EKG mentioned above. She was able to exercise for total of 6 minutes 30 seconds on standard Robert protocol achieving maximum heart rate of 146, which is 92% of maximum expected heart rate. With peak exercise level, EKG was showing minimal nondiagnostic changes. Blood pressure was 183/59. During recovery, heart rate and blood pressure returned to baseline. EKG returned to baseline. Echocardiographic images were acquired and reviewed in the parasternal long axis parasternal short axis, apical 4 chamber and apical 2 chamber views showed normal left ventricular size with no ischemic changes. Normal ejection fraction. CONCLUSION: 1. Good exercise tolerance a total of 6 minutes 30 seconds on standard Robert protocol. Total 7 METs achieving 92% of maximum expected heart rate. 2. Hypertensive response to exercise. Returned to baseline during recovery. 3. Minimal nondiagnostic EKG changes with exercise. Returned to baseline during recovery. 4. Normal echocardiographic images at rest and with peak stress images with no ischemic changes with ejection fraction 60%. Job ID: [id number] Dictated Date: 06/29/2016 16:28:00 Digital Ad Trafficker Date: 06/30/2016 09:15:59 / kaz
--- NOTE | 2016-06-30 11:21 | OPERATIVE REPORT ---
PROCEDURE PHYSICIAN: SERGIO BLOOD DATE OF ADMISSION: 06/28/2016 DATE OF PROCEDURE: 06/29/2016 ATTENDING PHYSICIAN: Dr. Morris. PREOPERATIVE DIAGNOSIS: 1. Gastroesophageal reflux disease. 2. Dysphagia. POSTOPERATIVE DIAGNOSES: 1. Reflux esophagitis, class B. 2. Small to moderate size hiatal hernia, approximately 2 to 2.5 cm in size. 3. Moderate severity gastritis. 4. No distal obstructions. PROCEDURE: EGD with biopsy. SURGEON: Dr. Blood. ANESTHESIA: Conscious sedation. ESTIMATED BLOOD LOSS: Minimal. FINDINGS: 1. Reflux esophagitis, class B. 2. No strictures or ulcers identified in this region. 3. A small to moderate size hiatal hernia, approximately 2 to 2.5 cm in size. 4. Moderate severity gastritis. 5. No formal ulcers, polyps or any neoplasms. 6. The pylorus and duodenum appeared normal. DISPOSITION: The patient tolerated the procedure well. Ms. Jodi Myles is a 60-year-old female who presented to [facility] emergency department last night after chest pressure, shortness of breath followed by regurgitation. She reports that she has a history of asthma and had issues with asthma attacks. However, this was much different. She reports with her asthma attacks she has had anxiety issues as well. She reports that after eating a meal she felt substernal pressure sensation which eventually caused shortness of breath. She then went outside and then had an episode of regurgitation of undigested food. She reports that she has had some symptoms of reflux in the past as well. PROCEDURE: The patient remained in the ICU under monitor and given IV pain and sedative medications the mouthpiece was applied. The endoscope was placed in the mouth, visualizing the pharynx and hypopharyngeal region. Vocal cords, epiglottis and vallecula identified and appeared to be normal. The endoscope was then gently intubated the esophageal opening and the esophagus insufflated. The endoscope was then passed the first, second, and 3rd portions esophagus. At the level of the GE junction, a reflux esophagitis, class B identified. There were no ulcers or strictures in this region. A biopsy was taken with forceps of visualization of good hemostasis. The endoscope was then easily advanced into the stomach and endoscope retroflexed visualizing a hiatal hernia which was small to moderate in size and approximately 2 to 2.5 cm. We feel that this is most likely cause of her symptoms. There was a moderate severity gastritis noted towards the stomach antrum. There were no formal ulcers, polyps or any neoplasms. A biopsy was taken of the stomach antrum, with visualization of good hemostasis. The endoscope was then advanced through the pylorus and first and second portions of duodenum which appeared normal with no distal obstructions. The endoscope was then slowly withdrawn while taking a second look and suctioning residual air with no additional findings. The patient tolerated the procedure well. We will start Protonix 40 mg b.i.d. while here, and then have her take 40 mg on a daily basis. We will also recommend the necessary lifestyle and diet accommodation including smaller, more frequent meals, avoidance of eating at night, as well as head elevation while lying supine. She also needs to avoid caffeinated beverages, spicy, greasy and acidic foods. Job ID: [id number] Dictated Date: 06/29/2016 15:40:56 Automotive Finance Manager Date: 06/30/2016 11:12:53 / kaz
== END 2016-06-29 11:13 | disposition home or self-care (01) ==
LOC: EDUNIT# 19:34 → ER 19:35 → UNDOADMOB 22:31 → ICU 22:31
PROVIDERS: ADMIT Family Medicine; ATTEND Family Medicine
DX: K21.0 Gastro-esophageal reflux disease with esophagitis (principal); K44.9 Diaphragmatic hernia without obstruction or gangrene; K29.70 Gastritis, unspecified, without bleeding; R07.89 Other chest pain; J45.909 Unspecified asthma, uncomplicated; F41.9 Anxiety disorder, unspecified; E66.09 Other obesity due to excess calories; Z68.37 Body mass index [BMI] 37.0-37.9, adult
CPT/HCPCS: 36415; 71010; 71275; 80053; 80061; 82550; 83690; 83735; 83874; 84484; 85025; 85610; 85730; 93005; 93041; 93306; 94640; 96361; 96365; 96374; 96375; G0378

== ENCOUNTER → 2016-09-23 | Outpatient (CLI) | payer BC ==
[~2016-09-23] MED LIST changes: +ALPR0.254 PO; +ASPI-586 PO; +DIPH25CA79 PO; +DORZ1DRO6 OS; +ESCI10TA PO; +MONT10TA21 PO; +MONT10TA24 PO; +OMEP20TA7 PO; -RT-ALBUTEROL/IPRATROPIUM 3 ML (DUONEB) VIAL ONE; +SUCR1TAB PO
--- NOTE | 2016-09-23 17:54 | Diagnostic Imaging Report ---
EXAMINATION: Right knee. INDICATION: Knee pain. Three views were obtained. FINDINGS: There is no fracture, dislocation, or acute bony abnormality evident. There is at least moderate narrowing of the medial compartment of the knee joint. The lateral compartment and the patellofemoral space are fairly well maintained. The soft tissues are unremarkable. IMPRESSION: 1. There is no evidence for an acute bony abnormality. 2. If there is clinical concern regarding internal derangement, then MRI would be recommended for further study. Dictated by: Dictated on workstation # [id number]
== END ==
LOC: RAD 15:17
PROVIDERS: ATTEND Nurse Practitioner Family
DX: M25.561 Pain in right knee (principal)
CPT/HCPCS: 73562

== ENCOUNTER → 2017-11-22 | Outpatient (CLI) | payer BC, OTHER ==
--- NOTE | 2017-11-22 20:09 | Diagnostic Imaging Report ---
INDICATION: Screening. The current study was also evaluated with a Computer Aided Detection (CAD) system. COMPARISON: Comparison made with prior examinations from 06/23/2016 back through 10/13/2011. 3D tomosynthesis was also performed and reviewed. FINDINGS: There are scattered fibroglandular densities bilaterally. There are a few benign-type calcifications. There is no dominant mass, spiculated lesion, or suspicious calcification identified. The skin, nipples, and axillae are unremarkable. IMPRESSION: Benign. ACR BI-RADS Category 2: Benign findings. Result letter will be mailed to the patient. Note: At least 10% of breast cancer is not imaged by mammography. Dictated by: Dictated on workstation # [id number]
== END ==
LOC: RAD 07:54
PROVIDERS: ATTEND Nurse Practitioner Family
DX: Z12.31 Encounter for screening mammogram for malignant neoplasm of breast (principal)
CPT/HCPCS: 77067

== ENCOUNTER → 2018-04-22 | Outpatient (CLI) | payer OTHER | LOC: RAD 14:43 | PROVIDERS: ATTEND Nurse Practitioner Family | DX: M54.5 Low back pain (principal); R33.9 Retention of urine, unspecified; R53.1 Weakness; Z53.8 Procedure and treatment not carried out for other reasons ==

== ENCOUNTER → 2019-03-22 | Outpatient (CLI) | payer OTHER ==
--- NOTE | 2019-03-23 19:22 | Diagnostic Imaging Report ---
EXAMINATION: Digital mammogram bilateral screening. The current study was also evaluated with a Computer Aided Detection (CAD) system. 3-D tomosynthesis was also performed and reviewed. INDICATION: Screening. This study was compared to the prior exams of 11/22/2017, 06/23/2016, and 04/25/2015. At this time, there are no current complaints. FINDINGS: The fibroglandular tissue in both breasts is heterogeneously dense. This does limit the sensitivity of this exam. Overall, there does not appear to have been any significant change when compared to the prior study. No primary or secondary sign of malignancy is noted. 3D tomographic images fail to show any sign of malignancy. IMPRESSION: There is no radiographic evidence for malignancy. ACR BI-RADS Category 1: Negative. Result letter will be mailed to the patient. Note: At least 10% of breast cancer is not imaged by mammography. Dictated by: Dictated on workstation # [id number]
== END ==
LOC: RAD 08:01
PROVIDERS: ATTEND Family Medicine
DX: Z12.31 Encounter for screening mammogram for malignant neoplasm of breast (principal)
CPT/HCPCS: 77067